=== PATIENT | male | born 1940 | race Caucasian/White ===

== ENCOUNTER 2022-06-25 12:03 | Day surgery (SDC) | payer OTHER ==
[~2022-06-25] VITALS: Ht 177.8 cm; Wt 121.4 kg
[2022-06-25] MEDS ORDERED: METF500 (12:37)
[2022-06-25] MEDS ORDERED: FINA5 (12:37)
[2022-06-25] MEDS ORDERED: Prinivil10 MG (12:37)
[2022-06-25] MEDS ORDERED: DOXA4 (12:38)
[2022-06-25] MEDS ORDERED: LEVOTHYROXINE175 MC9 (12:38)
--- NOTE | 2022-06-25 12:46 | NUR ---
06/25/22 [address] ON 3 L O2 VIA NC PT COMPLAINS OF SOB WHEN HE ARRIVED IN THE ROOM STATES HE USES O2 AT NIGHT UNSURE OF HOW MANY LITERS PER PT AND HIS MIRELA. DR COLÓN NOTIFIED BY [facility].TMG NO ORDERS GIVEN.
== END 2022-06-25 14:07 | disposition home or self-care (01) ==
LOC: ORSCSDS 12:03
PROVIDERS: Ophthalmology
PROC: 08RK3JZ Replacement of Left Lens with Synthetic Substitute, Percutaneous Approach (ICD-10-PCS; principal; 2022-06-25 13:30)
DX: H25.12 Age-related nuclear cataract, left eye (principal); I10 Essential (primary) hypertension; G47.33 Obstructive sleep apnea (adult) (pediatric); Z87.891 Personal history of nicotine dependence; E03.9 Hypothyroidism, unspecified; E78.5 Hyperlipidemia, unspecified; F03.90 Unspecified dementia, unspecified severity, without behavioral disturbance, psychotic disturbance, mood disturbance, and anxiety; Z79.899 Other long term (current) drug therapy; E66.9 Obesity, unspecified; Z68.39 Body mass index [BMI] 39.0-39.9, adult
CPT/HCPCS: 82947; J2001; J2250; J3010; J3301; J7040; V2632